=== PATIENT | female | born 1995 | race Caucasian/White ===

== ENCOUNTER 2019-02-17 15:54 | Emergency (ER) | payer BC ==
--- NOTE | 2019-02-17 16:35 | ER Document Report ---
ED Medical Screen (RME) - General Chief Complaint: Nausea/Vomiting Stated Complaint: NAUSEA Time Seen by Provider: 02/17/19 16:31 Mode of Arrival: Ambulatory Information source: Patient Notes: 23-year-old female presents to ED for complaint of bilateral pelvic pain nausea vomiting times a week. She states she has not had a menstrual cycle since September. She states she only has 3 or 4 menstrual cycles a year. She states she is never had a ultrasound to determine whether she had PCOS or any other problems. States she does have a history of a tonsillectomy. She states she has a family history of PCOS. She does not smoke drink or do any drugs and she works at [employer]. I have greeted and performed a rapid initial assessment of this patient. A comprehensive ED assessment and evaluation of the patient, analysis of test results and completion of medical decision making process will be conducted by an additional ED providers. Dictation of this chart was performed using voice recognition software; therefore, there may be some unintended grammatical errors. TRAVEL OUTSIDE OF THE [place] IN LAST 30 DAYS: No - Related Data Allergies/Adverse Reactions: morphine Allergy (Verified 02/17/19 16:07) sumatriptan [From Imitrex] Allergy (Verified 02/17/19 16:07) Physical Exam - Vital signs Vitals: Temp Pulse Resp BP Pulse Ox 98.3 F 86 18 127/87 H 100 02/17/19 16:27 02/17/19 16:27 02/17/19 16:27 02/17/19 16:27 02/17/19 16:27 Course - Vital Signs Vital signs: Temp Pulse Resp BP Pulse Ox 98.3 F 86 18 127/87 H 100 02/17/19 16:27 02/17/19 16:27 02/17/19 16:27 02/17/19 16:27 02/17/19 16:27
[2019-02-17 17:01] LABS: ABSOLUTE BASOPHILS # (AUTO) 0.1 10^3/uL (0.0-0.2); ABSOLUTE EOSINOPHILS # (AUTO) 0.1 10^3/uL (0.0-0.6); ABSOLUTE LYMPHOCYTES (AUTO) 3.4 10^3/uL (0.5-4.7); ABSOLUTE MONOCYTES (AUTO) 0.9 10^3/uL (0.1-1.4); ABSOLUTE NEUT (AUTO) 9.8 10^3/uL (1.7-8.2); BASOPHILS % (AUTO) 0.4 % (0-2); EOSINOPHILS % (AUTO) 0.8 % (0-6); HEMATOCRIT 42.2 % (36.0-47.0); LYMPHOCYTES % (AUTO) 23.7 % (13-45); MEAN CORPUSCULAR HEMOGLOBIN 28.9 pg (27.0-33.4); MEAN CORPUSCULAR HGB CONC 33.2 g/dL (32.0-36.0); MEAN CORPUSCULAR VOLUME 87 fl (80-97); MONOCYTES % (AUTO) 6.2 % (3-13); PLATELET COUNT 272 10^3/uL (150-450); RED BLOOD COUNT 4.86 10^6/uL (3.72-5.28); RED CELL DISTRIBUTION WIDTH 13.8 % (11.5-14.0); SEGMENTED NEUTROPHILS % (AUTO) 68.9 % (42-78); TOTAL CELLS COUNTED % (AUTO) 100 %; WHITE BLOOD COUNT 14.2 10^3/uL (4.0-10.5)
[2019-02-17 17:14] LABS: ALANINE AMINOTRANSFERASE 22 U/L (9-52); ALBUMIN 4.6 g/dL (3.5-5.0); ALKALINE PHOSPHATASE 61 U/L (38-126); AMORPHOUS SEDIMENT,URINE TRACE /HPF; ANION GAP 11 (5-19); APPEARANCE,URINE CLEAR; ASPARTATE AMINO TRANSFERASE 21 U/L (14-36); BILIRUBIN,DIRECT 0.3 mg/dL (0.0-0.4); BILIRUBIN,TOTAL 0.4 mg/dL (0.2-1.3); BILIRUBIN,URINE NEGATIVE (NEGATIVE); BLOOD UREA NITROGEN 12 mg/dL (7-20); CALCIUM 9.7 mg/dL (8.4-10.2); CARBON DIOXIDE 25 mmol/L (22-30); CHLORIDE 102 mmol/L (98-107); COLOR,URINE YELLOW; GLUCOSE 91 mg/dL (75-110); GLUCOSE, URINE NEGATIVE (NEGATIVE); KETONES,URINE NEGATIVE (NEGATIVE); LEUKOCYTE ESTERASE,URINE LARGE (NEGATIVE); LIPASE 85.3 U/L (23-300); NITRITE,URINE NEGATIVE (NEGATIVE); POTASSIUM 4.5 mmol/L (3.6-5.0); PROTEIN,URINE NEGATIVE (NEGATIVE); SODIUM 138.1 mmol/L (137-145); TOTAL PROTEIN 7.7 g/dL (6.3-8.2); URINE SPECIFIC GRAVITY 1.021; UROBILINOGEN,URINE NEGATIVE mg/dL (<2.0)
--- NOTE | 2019-02-17 17:54 | RADIOLOGY REPORT (SQ) ---
EXAM DESCRIPTION: U/S OB TRANSVAGINAL W/O DOP COMPLETED DATE/TIME: 02/17/2019 5:33 pm REASON FOR STUDY: pelvic pain no bleeding COMPARISON: None. TECHNIQUE: Transvaginal static and realtime grayscale images acquired of the pelvis. Additional lena cted spectral and color Doppler images recorded. All images stored on PACs. bHCG: Pending. CLINICAL DATES: Unknown LIMITATIONS: None. FINDINGS: FETUS: Single Living intrauterine . ULTRASOUND EGA: 7 weeks 4 days ULTRASOUND DC: 10/02/2019 EFW: Not applicable less than 20 weeks. CRL: 1.3 cm FHR: 147 beats per minute. SURVEY: Too early to assess. AMNIOTIC FLUID: Adequate amount. PLACENTA: Not yet developed due to early gestation. SUBCHORIONIC BLEED: Yes. SIZE OF BLEED: 1.2 x 0.8 x 0.6 cm. UTERUS: No masses. No anomalies. CERVICAL LENGTH: 2.3 cm Closed. RIGHT ADNEXA: Normal ovary with normal vascular flow. No adnexal free fluid. No adnexal masses. LEFT ADNEXA: Ovary not identified due to poor acoustical window. No adnexal free fluid. No adnexal masses. FREE FLUID: None. OTHER: No other significant finding. IMPRESSION: LIVING INTRAUTERINE . EGA 7 weeks 4 days Trimester of : First - 0 to 13 weeks. TECHNICAL DOCUMENTATION: JOB ID: [id number] [id number] 2010 [employer]- All Rights Reserved Reading location - IP/workstation name: [email or web address]
[2019-02-17 22:10] VITALS: BP 138/81
--- NOTE | 2019-02-17 23:43 | ER Document Report ---
ED General - General Chief Complaint: Nausea/Vomiting Stated Complaint: NAUSEA Time Seen by Provider: 02/17/19 16:31 Mode of Arrival: Ambulatory Notes: Patient is a pleasant 23-year-old female presents with complaint of pelvic cramping and vomiting over the last several days. Patient said prior to arrival she was unsure if she is or not. She denies any fevers. No vaginal bleeding or abnormal vaginal discharge. This is her first . No other complaints at this time. TRAVEL OUTSIDE OF THE [place] IN LAST 30 DAYS: No - Related Data Allergies/Adverse Reactions: morphine Allergy (Verified 02/17/19 16:07) sumatriptan [From Imitrex] Allergy (Verified 02/17/19 16:07) Past Medical History - General Information source: Patient - Social History Smoking Status: Never Smoker Frequency of alcohol use: None Drug Abuse: None Family History: Reviewed & Not Pertinent Review of Systems - Review of Systems Notes: My Normal Review Basic REVIEW OF SYSTEMS: CONSTITUTIONAL : Denies fever, chills, or sweats. Denies recent illness. RESPIRATORY: Denies cough, cold, or chest congestion. Denies shortness of breath, difficulty breathing, or wheezing. GASTROINTESTINAL: Denies abdominal pain. Denies nausea, vomiting, or diarrhea. GENITOURINARY: Denies difficulty urinating, painful urination, burning, frequency, or blood in urine. FEMALE GENITOURINARY: Denies vaginal bleeding, abnormal or irregular periods. LMP: Currently MUSCULOSKELETAL: Denies neck or back pain or joint pain or swelling. SKIN: Denies rash or skin lesions. NEUROLOGICAL: Denies altered mental status or loss of consciousness. Denies headache. Denies weakness or paralysis or loss of use of either side. Denies problems with gait or speech. Denies sensory or motor loss. ALL OTHER SYSTEMS REVIEWED AND NEGATIVE. Physical Exam - Vital signs Vitals: Temp Pulse Resp BP Pulse Ox 98.3 F 86 18 127/87 H 100 02/17/19 16:27 02/17/19 16:27 02/17/19 16:27 02/17/19 16:27 02/17/19 16:27 - Notes Notes: General Appearance: Well nourished, alert, cooperative, no acute distress, no obvious discomfort. Vitals: reviewed, See vital signs table. Eyes: PERRL, EOMI, Conjuctiva clear Lungs: No wheezing, No rales, No rhonci, No accessory muscle use, good air exchange bilaterally. Heart: Normal rate, Regular rythm, No murmur, no rub Abdomen: Normal BS, soft, No rigidity, mild suprapubic abdominal tenderness to palpation, No guarding, no rebound, no abdominal masses, no organomegaly Pelvic exam: Pelvic exam performed with female nurse at bedside. Pelvic exam shows normal external genitalia. No blood in vaginal vault. small amount of white discharge. Extremities:good pulses in all extremities, Skin: warm, dry, appropriate color, no rash Neuro: speech clear, oriented x 3, normal affect, responds appropriately to questions. Course - Re-evaluation Re-evalutation: 02/18/19 05:27 Patient's test did confirm that she is . She has no vaginal bleeding and therefore RhoGam work-up is not needed at this time. Ultrasound showed an intrauterine with good heart rate. Patient did undergo pelvic exam of the denies any concerning findings. No evidence of bacterial vaginosis. Urinalysis shows some white blood cells however the patient has no dysuria and she said she rather hold off on antibiotics until urine culture comes back. Patient encouraged to return to ER immediately if she has fevers, worsening pain, vomiting, vaginal bleeding, or if she feels unwell. Patient agrees with plan will be discharged home. Informed to take vitamins. Dictation of this chart was performed using voice recognition software; therefore, there may be some unintended grammatical errors. - Vital Signs Vital signs: Temp Pulse Resp BP Pulse Ox 98.7 F 88 15 138/81 H 98 02/17/19 22:02 02/17/19 22:02 02/17/19 22:02 02/17/19 22:02 02/17/19 22:02 - Laboratory Result Diagrams: 02/17/19 16:35 02/17/19 16:35 Laboratory results interpreted by me: 02/17/19 02/17/19 02/17/19 16:35 16:35 16:35 WBC 14.2 H Absolute Neutrophils 9.8 H Beta HCG, Quant 25041.00 H Ur Leukocyte Esterase LARGE H Discharge - Discharge Clinical Impression: Pelvic pain during Vomiting Qualifiers: Vomiting type: unspecified Vomiting Intractability: non-intractable Nausea presence: with nausea Qualified Code(s): R11.2 - Nausea with vomiting, unspecified Condition: Good Disposition: HOME, SELF-CARE Additional Instructions: Your initial vaginal swabs did not show any concerning findings. We will send off additional vaginal swabs to test for gonorrhea and chlamydia. I suspect that these will be negative. If they are positive we will call you. As di scussed with you, I have sent your urine for culture. If it is positive you should receive a phone call so that we can call in an antibiotic. If you do not hear from us in 2 days than you can call the culture callback number at [phone]. Please follow-up with your doctor as scheduled for referral to [facility]. Please avoid heavy lifting. I have prescribed you medication called Reglan which is safe in and you can take whenever you are nauseous or having recurrent vomiting. Prescriptions: Metoclopramide HCl [Reglan 10 mg Tablet] 1 tab PO ASDIR PRN #25 tablet PRN Reason: Forms: Special Work Note
[2019-02-17 23:58] LABS: EPITHELIALS (WET MOUNT) 3+ EPITHELIALS SEEN; RBCS (WET MOUNT) NO RBCS SEEN; T.VAGINALIS (WET MOUNT) NO TRICHOMONAS SEEN; WBCS (WET MOUNT) FEW WBCS SEEN; YEAST (WET MOUNT) NO YEAST SEEN
[2019-02-18 01:22] LABS: CHLAM PCR NOT DETECTED (NOT DETECT)
== END 2019-02-18 00:30 | disposition home or self-care (01) ==
LOC: ER 15:54
DX: O21.9 Vomiting of pregnancy, unspecified (principal); O26.899 Other specified pregnancy related conditions, unspecified trimester; R10.2 Pelvic and perineal pain; Z3A.00 Weeks of gestation of pregnancy not specified; Z88.5 Allergy status to narcotic agent; Z88.6 Allergy status to analgesic agent
CPT/HCPCS: 36415; 76817; 80053; 81001; 83690; 84702; 85025; 87210; 87491; 87591; 99284